=== PATIENT | female | born 1955 | race Caucasian/White ===

== ENCOUNTER 2016-11-02 10:01 | Emergency (ER) | payer MEDICARE, OTHER ==
[2016-11-02] MEDS ORDERED: SODIUM CHLORIDE 0.9% 1,000 ML IV ONE ×2 (12:29→12:43)
[2016-11-02] MEDS ORDERED: ACETAMINOPHEN 1,000 MG/100 ML 100 ML IV STA (12:29)
[2016-11-02] MEDS ORDERED: ACETAMINOPHEN 1,000 MG/100 ML 100 ML IV ONE (12:43)
== END 2016-11-02 14:24 | disposition home or self-care (01) ==
DX: R10.31 Right lower quadrant pain (principal); R11.2 Nausea with vomiting, unspecified; I10 Essential (primary) hypertension
CPT/HCPCS: 36415; 74176; 80053; 81001; 83690; 85025; 87086; 96374; 99283; 99284; J0131

== ENCOUNTER 2017-01-13 09:08 | Outpatient (CLI) | payer MEDICARE, OTHER | END 2017-01-13 09:09 | disposition home or self-care (01) | LOC: RT 09:08 | DX: J45.909 Unspecified asthma, uncomplicated (principal) | CPT/HCPCS: 94010 ==

== ENCOUNTER 2019-03-11 10:26 | Emergency (ER) | payer MEDICARE, OTHER ==
[2019-03-11 11:33] LABS: BASOPHILS % (AUTO) 0.2 %; EOSINOPHILS # (AUTO) 0.1 10^3/uL (0.0-0.7); EOSINOPHILS % (AUTO) 0.9 %; HGB - HEMOGLOBIN 9.9 g/dL (12.0-16.0); LYMPHOCYTES # (AUTO) 1.9 10^3/uL (1.5-3.5); LYMPHOCYTES % (AUTO) 19.6 %; MEAN CORPUSCULAR HEMOGLOBIN 28.1 pg (27.0-31.0); MEAN CORPUSCULAR HGB CONC 29.5 g/dL (32.0-36.0); MEAN CORPUSCULAR VOLUME 95.5 fL (81.0-99.0); MEAN PLATELET VOLUME 10.2 fL (7.9-10.8); MONOCYTES # (AUTO) 0.6 10^3/uL (0.0-1.0); MONOCYTES % (AUTO) 6.4 %; NEUTROPHILS # (AUTO) 6.9 10^3/uL (1.5-6.6); NEUTROPHILS % (AUTO) 72.5 %; PLT - PLATELET COUNT 196 10^3/uL (130-450); RED BLOOD COUNT 3.52 10^6/uL (4.20-5.40); WHITE BLOOD COUNT 9.5 x10^3/uL (4.8-10.8)
[2019-03-11 11:34] LABS: BILIRUBIN,URINE NEGATIVE (NEGATIVE); GLUCOSE, URINE (UA) NEGATIVE (NEGATIVE); KETONES,URINE (UA) NEGATIVE (NEGATIVE); LEUKOCYTE ESTERASE, URINE MODERATE (NEGATIVE); NITRITE,URINE NEGATIVE (NEGATIVE); OCCULT BLOOD,URINE NEGATIVE (NEGATIVE); PH,URINE 6.5 PH (5.0-7.5); PROTEIN,URINE 30 mg/dL (NEGATIVE); UROBILINOGEN,URINE 0.2 (NORMAL) E.U./dL (NORMAL)
[2019-03-11 11:37] LABS: CLARITY,URINE HAZY (CLEAR)
[2019-03-11 11:41] LABS: BACTERIA,URINE Moderate /HPF (None Seen); RBC,URINE 0-5 /HPF (0-5); SQUAMOUS EPITHELIAL CELL,UR MOD Squamous (<= Few)
[2019-03-11] MEDS ORDERED: LORazepam 1 MG TABLET PO STA (11:47)
[2019-03-11] MEDS ORDERED: HALOPERIDOL 5 MG/ML VIAL IM STA (11:47)
[2019-03-11 11:58] LABS: ALBUMIN 3.6 g/dL (3.2-5.5); ALBUMIN/GLOBULIN RATIO 0.9 (1.0-2.2); CALCIUM 9.4 mg/dL (8.5-10.3); TOTAL PROTEIN 7.4 g/dL (6.7-8.2)
--- NOTE | 2019-03-11 12:56 | ED Physician Documentation ---
PD HPI NVD - Stated complaint Stated Complaint: NAUSEA/VOMITING - Chief complaint Chief Complaint: Abd Pain - History obtained from History obtained from: Patient, Friend - History of Present Illness Timing - onset: How many days ago (several) Timing - duration: Days Timing - details: Gradual onset, Waxing and waning Associated symptoms: Loss of appetite. No: Fever, Abdominal pain, Chest pain, Hematemesis, Melena, Hematochezia, Dizzy, Near syncope / syncope, Hematuria, Vaginal bleeding, Vaginal dc, Testicular pain Contributing factors: No: Sick contact Improved by: Other (nothing) Worsened by: Eating, Other Similar symptoms before: Has not had sx before Recently seen: Not recently seen - Treatment prior to arrival Treatment prior to arrival: none - Additonal information Additional information: Pt reports feeling very anxious since her told her this weekend that he is leaving her. Since then she has had intermittent nausea and vomiting. Reports mild abdominal pain. Denies fever. Denies urinary symptoms. Denies cp, sob. Mostly reports anxiety. Review of Systems Ten Systems: 10 systems reviewed and negative Constitutional: denies: Fever, Chills Cardiac: denies: Chest pain / pressure Respiratory: denies: Dyspnea GI: reports: Abdominal Pain, Nausea, Vomiting. denies: Abdominal Swelling, Constipation, Diarrhea, Hematemesis, Bloody / black stool Skin: reports: Reviewed and negative Neurologic: reports: Reviewed and negative Psychiatric: reports: Depressed, Anxiety, Insomnia. denies: Suicidal PD PAST MEDICAL HISTORY - Past Medical History Past Medical History: Yes Cardiovascular: Hypertension Psych: Depression - Present Medications Home Medications: Ambulatory Orders Medication Instructions Recorded Confirmed Albuterol Sulfate [Ventolin Hfa] 8 gm IH 05/08/16 05/08/16 Atenolol [Tenormin] 25 mg PO DAILY 05/08/16 05/08/16 Bupropion HCl [Bupropion Xl] 300 mg PO 05/08/16 Esomeprazole Magnesium [Nexium 20 mg PO 05/08/16 24Hr] Fexofenadine HCl [Marie Allergy] 180 mg PO 05/08/16 Levothyroxine [Synthroid] 50 mcg PO QDAC 05/08/16 05/08/16 Lisinopril [Zestril] 40 mg PO 05/08/16 Meloxicam [Mobic] 15 mg PO 05/08/16 Thyroid [[place] Thyroid] 60 mg PO DAILY 05/08/16 05/08/16 Venlafaxine ER [Effexor ER] 150 mg PO DAILY 05/08/16 05/08/16 hydroCHLOROthiazide [Hydrodiuril] 12.5 mg PO DAILY 05/08/16 05/08/16 metFORMIN [Glucophage] 500 mg PO ONCE 05/08/16 05/08/16 Cyclobenzaprine [Flexeril] 10 mg PO TID PRN #10 tablet 05/13/16 Oxycodone HCl/Acetaminophen 1 - 2 tab PO Q4H PRN #10 tablet 05/13/16 [Percocet 5-325 mg Tablet] Cephalexin [Keflex] 500 mg PO Q6H #28 capsule 11/02/16 Ondansetron Odt [Zofran] 4 mg TL Q6H PRN #10 tablet 11/02/16 Ondansetron Odt [Zofran] 4 mg TL Q6H PRN #10 tablet 03/11/19 - Allergies Allergies/Adverse Reactions: Allergies Allergy/AdvReac Type Severity Reaction Status Date / Time ciprofloxacin [From Cipro] Allergy Unknown Verified 03/11/19 10:35 ciprofloxacin HCl * Allergy Unknown Verified 03/11/19 10:35 [From Cipro] erythromycin base Allergy Nausea Verified 03/11/19 10:35 theophylline Allergy Unknown Verified 03/11/19 10:35 - Social History Does the pt smoke?: No Smoking Status: Never smoker Does the pt drink ETOH?: No Does the pt have substance abuse?: No PD ED PE NORMAL - Vitals Vital signs reviewed: Yes - General General: Alert and oriented X 3, No acute distress, Well developed/nourished - HEENT HEENT: Atraumatic - Neck Neck: Supple, no meningeal sign - Cardiac Cardiac: RRR, No murmur, No gallop, No rub - Respiratory Respiratory: No respiratory distress, Clear bilaterally - Abdomen Abdomen: Soft, Non tender, Non distended - Female Female : Deferred - Rectal Rectal: Deferred - Back Back: No CVA TTP - Derm Derm: Normal color, Warm and dry, No rash - Extremities Extremities: No deformity - Neuro Neuro: Alert and oriented X 3 Eye Opening: Spontaneous Motor: Obeys Commands Verbal: Oriented GCS Score: 15 - Psych Psych: Normal mood, Normal affect Results - Vitals Vitals: Oxygen O2 Source Room air - Labs Labs: Laboratory Tests 03/11/19 03/11/19 03/11/19 11:05 11:21 11:21 WBC 9.5 RBC 3.52 L Hgb 9.9 L Hct 33.6 L MCV 95.5 MCH 28.1 MCHC 29.5 L RDW 14.0 Plt Count 196 MPV 10.2 Neut # (Auto) 6.9 H Lymph # (Auto) 1.9 [place] # (Auto) 0.6 Eos # (Auto) 0.1 Baso # (Auto) 0.0 Absolute Nucleated RBC 0.00 Nucleated RBC % 0.0 Sodium 140 Potassium 4.7 Chloride 104 Carbon Dioxide 24 Anion Gap 12.0 BUN 15 Creatinine 1.0 Estimated GFR (MDRD) 56 L Glucose 122 H Calcium 9.4 Total Bilirubin 1.0 AST 24 ALT 21 Alkaline Phosphatase 104 Troponin I Total Protein 7.4 Albumin 3.6 Globulin 3.8 Albumin/Globulin Ratio 0.9 L Lipase 26 Urine Color YELLOW Urine Clarity HAZY Urine pH 6.5 Ur Specific [place] 1.015 Urine Protein 30 H Urine Glucose (UA) NEGATIVE Urine Ketones NEGATIVE Urine Occult Blood NEGATIVE Urine Nitrite NEGATIVE Urine Bilirubin NEGATIVE Urine Urobilinogen 0.2 (NORMAL) Ur Leukocyte Esterase MODERATE H Urine RBC 0-5 Urine WBC 11-25 H Ur Squamous Epith Cells MOD Squamous H Urine Bacteria Moderate H Ur Microscopic Review INDICATED Urine Culture Comments NOT INDICATED 03/11/19 11:21 WBC RBC Hgb Hct MCV MCH MCHC RDW Plt Count MPV Neut # (Auto) Lymph # (Auto) [place] # (Auto) Eos # (Auto) Baso # (Auto) Absolute Nucleated RBC Nucleated RBC % Sodium Potassium Chloride Carbon Dioxide Anion Gap BUN Creatinine Estimated GFR (MDRD) Glucose Calcium Total Bilirubin AST ALT Alkaline Phosphatase Troponin I < 0.04 Total Protein Albumin Globulin Albumin/Globulin Ratio Lipase Urine Color Urine Clarity Urine pH Ur Specific [place] Urine Protein Urine Glucose (UA) Urine Ketones Urine Occult Blood Urine Nitrite Urine Bilirubin Urine Urobilinogen Ur Leukocyte Esterase Urine RBC Urine WBC Ur Squamous Epith Cells Urine Bacteria Ur Microscopic Review Urine Culture Comments contaminated urine sample, no symptoms of UTI, mild anemia. no evidence of significant dehydration. PD MEDICAL DECISION MAKING - ED course Complexity details: reviewed results, re-evaluated patient, considered differential, d/w patient ED course: ddx - anxiety, grieving, hepatitis, pancreaitis, UTI, gastritis, cyclic vomiting 63 y/o F with reports of anxiety since left her just this week.. Feeling intermittently nauseous and vomited a few times. No GI bleeding reported. No diarrhea. Pt denies cp, sob. She has a normal examination, normal labs. UA contaminated sample and no symptoms of UTI. Pt given antiemetics and ativan with relief of symptoms. She is drinking oral fluids. Will f/u with PCP as outpt. Given return precautions if worsening or new concerning symptoms. Departure - Departure Disposition: Home, Self Care Clinical Impression: Nausea Condition: Stable Record reviewed to determine appropriate education?: Yes Instructions: Nausea Vomit Control Follow-Up: MELYSSA CARL [Primary Care Provider] - Within 1 week Prescriptions: Ondansetron Odt [Zofran] 4 mg TL Q6H PRN #10 tablet PRN Reason: Nausea / Vomiting Comments: Your ekg, labs and examination in the Emergency department today were normal. You should follow up with your doctor to further discuss your symptoms. You can take zofran as needed for nausea in the meantime. Discharge Date/Time: 03/11/19 13:25
[2019-03-11 13:26] VITALS: BP 156/74
== END 2019-03-11 13:25 | disposition home or self-care (01) ==
LOC: ED 10:26
DX: R11.2 Nausea with vomiting, unspecified (principal); F41.9 Anxiety disorder, unspecified; I10 Essential (primary) hypertension
CPT/HCPCS: 36415; 80053; 81001; 83690; 84484; 85025; 93005; 96372; 99284; J8499; 81003; 87086

== ENCOUNTER 2020-08-02 12:16 | Outpatient (CLI) | payer MEDICARE, OTHER ==
--- NOTE | 2020-08-02 16:11 | XRAY Report ---
PROCEDURE: Ankle 3 View RT INDICATIONS: NONDISPLACED FX OF LATERAL MALLEOLUS OF R FIBULA TECHNIQUE: views of the ankle were acquired. COMPARISON: None FINDINGS: Bones: No dislocations. Ankle mortise is normally aligned. No suspicious bony lesions. There is a nondisplaced diagonal fracture involving the distal metadiaphyseal junction of the right fibula. An kle mortise joint widening is not present. Soft tissues: No tibiotalar joint effusion. Achilles tendon appears normal. IMPRESSION: Distal fibular diagonal fracture, high right ankle fracture laterally. No abnormal widen ing of the ankle mortise joint. The fracture plane is essentially in anatomic alignment. Reviewed by: Juan Pablo Bella MD on 08/02/2020 4:09 PM PST Approved by: Juan Pablo Bella MD on 08/02/2020 4:09 PM PST Station ID: [id number]
== END 2020-08-02 23:59 | disposition home or self-care (01) ==
LOC: DI.N 12:16
PROVIDERS: ATTEND Orthopaedic Surgery
DX: S82.831A Other fracture of upper and lower end of right fibula, initial encounter for closed fracture (principal)

== ENCOUNTER 2021-01-09 21:11 | Outpatient (CLI) | payer MEDICARE, OTHER | END 2021-01-09 21:12 | disposition critical access hospital (66) | LOC: EMS 21:11 | DX: R45.89 Other symptoms and signs involving emotional state (principal) | CPT/HCPCS: A0425; A0429 ==

== ENCOUNTER 2021-01-09 21:31 | Emergency (ER) | payer MEDICARE, OTHER ==
[2021-01-09 22:01] LABS: BASOPHILS % (AUTO) 0.3 %; EOSINOPHILS # (AUTO) 0.1 10^3/uL (0.0-0.7); EOSINOPHILS % (AUTO) 1.2 %; HCT - HEMATOCRIT 41.9 % (37.0-47.0); HGB - HEMOGLOBIN 14.1 g/dL (12.0-16.0); LYMPHOCYTES # (AUTO) 2.6 10^3/uL (1.5-3.5); LYMPHOCYTES % (AUTO) 24.4 %; MEAN CORPUSCULAR HEMOGLOBIN 29.9 pg (27.0-31.0); MEAN CORPUSCULAR HGB CONC 33.7 g/dL (32.0-36.0); MEAN CORPUSCULAR VOLUME 88.8 fL (81.0-99.0); MEAN PLATELET VOLUME 9.9 fL (7.9-10.8); MONOCYTES # (AUTO) 0.7 10^3/uL (0.0-1.0); MONOCYTES % (AUTO) 6.9 %; NEUTROPHILS % (AUTO) 66.7 %; PLT - PLATELET COUNT 263 10^3/uL (130-450); RED BLOOD COUNT 4.72 10^6/uL (4.20-5.40); RED CELL DISTRIBUTION WIDTH 13.6 % (12.0-15.0); WHITE BLOOD COUNT 10.5 x10^3/uL (4.8-10.8)
[2021-01-09 22:18] LABS: ALBUMIN 3.4 g/dL (3.2-5.5); ALBUMIN/GLOBULIN RATIO 1.1 (1.0-2.2); ALKALINE PHOSPHATASE 99 IU/L (42-121); ALT ALANINE AMINOTRANSFERASE 19 IU/L (10-60); AST ASPARTATE AMINOTRANSFERASE 21 IU/L (10-42); BILIRUBIN,TOTAL 0.8 mg/dL (0.2-1.0); BUN - BLOOD UREA NITROGEN 14 mg/dL (6-20); CALCIUM 8.8 mg/dL (8.5-10.3); CARBON DIOXIDE - CO2 26 mmol/L (21-32); CHLORIDE 102 mmol/L (101-111); CREATININE 0.9 mg/dL (0.4-1.0); ETOH - ETHANOL < 5.0 mg/dL; GFR - MDRD 63 (>89); GLUCOSE 102 mg/dL (70-100); LIPASE 20 U/L (22-51); POTASSIUM 3.6 mmol/L (3.5-5.0); SODIUM 139 mmol/L (135-145); TOTAL PROTEIN 6.4 g/dL (6.7-8.2)
[2021-01-09] MEDS ORDERED: oxyCODONE 5 MG TABLET PO STA (22:19)
[2021-01-09 23:03] LABS: B. PARAPERTUSSIS- RESP PCR PAN NOT DETECTED; B. PERTUSSIS- RESP PCR PANEL NOT DETECTED; C. PNEUMONIAE- RESP PCR PANEL NOT DETECTED; CORONAVIRUS 229E-RESP PCR NOT DETECTED; CORONAVIRUS HKU1-RESP PCR NOT DETECTED; CORONAVIRUS NL63-RESP PCR NOT DETECTED; CORONAVIRUS OC43-RESP PCR NOT DETECTED; HUMAN METAPNEUMOVIRUS NOT DETECTED; INFLUENZA A- RESP PCR PANEL NOT DETECTED; INFLUENZA B - RESP PCR PANEL NOT DETECTED; M. PNEUMONIAE- RESP PCR PANEL NOT DETECTED; PARAINFLUENZA VIRUS 1 NOT DETECTED; PARAINFLUENZA VIRUS 2 NOT DETECTED; PARAINFLUENZA VIRUS 3 NOT DETECTED; PARAINFLUENZA VIRUS 4 NOT DETECTED; RHINOVIRUS/ENTEROVIRUS NOT DETECTED; RSV- RESP PCR PANEL NOT DETECTED; SARS-CoV-2 -RESP PCR PANEL NOT DETECTED
[2021-01-09] MEDS ORDERED: LORazepam 2 MG/ML VIAL IM STA (23:10)
[2021-01-10] MEDS ORDERED: oxyCODONE 5 MG TABLET PO STA (00:21)
--- NOTE | 2021-01-10 04:17 | ED Physician Documentation ---
History of Present Illness - Stated complaint Stated Complaint: SI - Chief complaint Chief Complaint: MHE - History obtained from History obtained from: Patient, EMS - Additonal information Additional information: Patient is brought to the emergency department by EMS for chief complaint of "I do not want to be here anymore". The patient states that she has been to her for a total of 45 years, though she was in 20 years ago. She states that he "came back" and that she has spent the last 20 years mostly laying in bed because she is so depressed. The patient states that the main source of her unhappiness is her unhappy marriage. She states that she has seen multiple counselors, therapists, and psychiatrist and has been on various medications. When asked if she is ever attempted to commit suicide, patient states "only in my prayers". With further questioning, the patient denies ever having done anything to purposely harm herself, including today. She states valeriy t she just prays that God will take her life because she is unhappy. She denies domestic abuse. She states she has not been taking her medications, though she will not say exactly why. Patient has a history of hypertension, depression and anxiety. She denies being on chronic pain medication, though she states at this time that "her whole body hurts". She denies trauma. No other complaints at this time. Review of Systems Ten Systems: 10 systems reviewed and negative Constitutional: reports: Reviewed and negative Eyes: reports: Reviewed and negative Ears: reports: Reviewed and negative Nose: reports: Reviewed and negative Throat: reports: Reviewed and negative Cardiac: reports: Reviewed and negative Respiratory: reports: Reviewed and negative GI: reports: Reviewed and negative : reports: Reviewed and negative Skin: reports: Reviewed and negative Musculoskeletal: reports: Reviewed and negative Neurologic: reports: Reviewed and negative Psychiatric: reports: Depressed, Suicidal Endocrine: reports: Reviewed and negative Immunocompromised: reports: Reviewed and negative PD PAST MEDICAL HISTORY - Past Medical History Past Medical History: Yes Cardiovascular: Hypertension Psych: Depression - Past Surgical History Past Surgical History: Yes Cardiovascular: Other - Present Medications Home Medications: Ambulatory Orders Medication Instructions Recorded Confirmed Albuterol Sulfate [Ventolin Hfa] 8 gm IH 05/08/16 05/08/16 Bupropion HCl [Bupropion Xl] 300 mg PO 05/08/16 Esomeprazole Magnesium [Nexium 20 mg PO 05/08/16 24Hr] Fexofenadine HCl [Marie Allergy] 180 mg PO 05/08/16 Levothyroxine [Synthroid] 50 mcg PO QDAC 05/08/16 05/08/16 Lisinopril [Zestril] 40 mg PO 05/08/16 Thyroid [[place] Thyroid] 60 mg PO DAILY 05/08/16 05/08/16 Cyclobenzaprine [Flexeril] 10 mg PO TID PRN #10 tablet 05/13/16 Atorvastatin [Lipitor] 10 mg PO DAILY 01/09/21 01/09/21 Fluoxetine HCl [Prozac] 20 mg PO 01/09/21 Fluoxetine HCl [Prozac] 40 mg PO DAILY 01/09/21 01/09/21 Liothyronine [Cytomel] 5 mcg PO QDAC 01/09/21 01/09/21 Metoprolol Tartrate [Lopressor] 100 mg PO DAILY 01/09/21 01/09/21 Omeprazole Magnesium 20 mg PO DAILY 01/09/21 01/09/21 - Allergies Allergies/Adverse Reactions: Allergies Allergy/AdvReac Type Severity Reaction Status Date / Time ciprofloxacin [From Cipro] Allergy Unknown Verified 03/11/19 10:35 ciprofloxacin HCl * Allergy Unknown Verified 03/11/19 10:35 [From Cipro] erythromycin base Allergy Nausea Verified 03/11/19 10:35 theophylline Allergy Unknown Verified 03/11/19 10:35 - Social History Does the pt smoke?: No Smoking Status: Never smoker Does the pt drink ETOH?: No Does the pt have substance abuse?: No - Immunizations Immunizations are current?: No - POLST Patient has POLST: No PD ED PE NORMAL - Vitals Vital signs reviewed: Yes - General General: Alert and oriented X 3, Other (Patient is sobbing loudly.) - HEENT HEENT: Atraumatic, PERRL, EOMI, Moist mucous membranes - Neck Neck: Supple, no meningeal sign - Cardiac Cardiac: RRR, No murmur, Strong equal pulses - Respiratory Respiratory: No respiratory distress, Clear bilaterally - Abdomen Abdomen: Soft, Non tender, Non distended - Derm Derm: Normal color, Warm and dry, No rash - Extremities Extremities: No deformity, No edema, No calf tenderness / cord - Neuro Neuro: Alert and oriented X 3, 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 Emotionally labile, cycling between crying and anger, with occasional periods of quiet, yet hostile demeanor.) Results - Vitals Vitals: Vital Signs - 24 hr 01/09/21 01/09/21 21:35 21:58 Temperature 37.3 C 37.3 C Heart Rate 90 90 Respiratory 27 H 27 H Rate Blood Pressure 191/106 H 191/106 H O2 Saturation 98 98 Oxygen O2 Source Room air - Labs Labs: Laboratory Tests 01/09/21 01/09/21 01/09/21 21:57 21:57 21:57 WBC 10.5 RBC 4.72 Hgb 14.1 Hct 41.9 MCV 88.8 MCH 29.9 MCHC 33.7 RDW 13.6 Plt Count 263 MPV 9.9 Neut # (Auto) 7.0 H Lymph # (Auto) 2.6 [place] # (Auto) 0.7 Eos # (Auto) 0.1 Baso # (Auto) 0.0 Absolute Nucleated RBC 0.00 Nucleated RBC % 0.0 Sodium 139 Potassium 3.6 Chloride 102 Carbon Dioxide 26 Anion Gap 11.0 BUN 14 Creatinine 0.9 Estimated GFR (MDRD) 63 L Glucose 102 H Calcium 8.8 Total Bilirubin 0.8 AST 21 ALT 19 Alkaline Phosphatase 99 Total Protein 6.4 L Albumin 3.4 Globulin 3.0 Albumin/Globulin Ratio 1.1 Lipase 20 L TSH 7.63 H Nasal Adenovirus (PCR) Nasal B. parapertussis DNA (PCR) Nasal Coronavir 229E PCR Nasal Coronavir HKU1 PCR Nasal Coronavir NL63 PCR Nasal Coronavir OC43 PCR Nasal Enterovir/Rhinovir PCR Nasal Influenza B PCR Nasal Influenza A PCR Nasal Parainfluen 1 PCR Nasal Parainfluen 2 PCR Nasal Parainfluen 3 PCR Nasal Parainfluen 4 PCR Nasal RSV (PCR) Nasal B.pertussis DNA PCR Nasal C.pneumoniae (PCR) Christian Human Metapneumo PCR Nasal M.pneumoniae (PCR) Nasal SARS-CoV-2 (PCR) Ethyl Alcohol < 5.0 01/09/21 22:02 WBC RBC Hgb Hct MCV MCH MCHC RDW Plt Count MPV Neut # (Auto) Lymph # (Auto) [place] # (Auto) Eos # (Auto) Baso # (Auto) Absolute Nucleated RBC Nucleated RBC % Sodium Potassium Chloride Carbon Dioxide Anion Gap BUN Creatinine Estimated GFR (MDRD) Glucose Calcium Total Bilirubin AST ALT Alkaline Phosphatase Total Protein Albumin Globulin Albumin/Globulin Ratio Lipase TSH Nasal Adenovirus (PCR) NOT DETECTED Nasal B. parapertussis DNA (PCR) NOT DETECTED Nasal Coronavir 229E PCR NOT DETECTED Nasal Coronavir HKU1 PCR NOT DETECTED Nasal Coronavir NL63 PCR NOT DETECTED Nasal Coronavir OC43 PCR NOT DETECTED Nasal Enterovir/Rhinovir PCR NOT DETECTED Nasal Influenza B PCR NOT DETECTED Nasal Influenza A PCR NOT DETECTED Nasal Parainfluen 1 PCR NOT DETECTED Nasal Parainfluen 2 PCR NOT DETECTED Nasal Parainfluen 3 PCR NOT DETECTED Nasal Parainfluen 4 PCR NOT DETECTED Nasal RSV (PCR) NOT DETECTED Nasal B.pertussis DNA PCR NOT DETECTED Nasal C.pneumoniae (PCR) NOT DETECTED Christian Human Metapneumo PCR NOT DETECTED Nasal M.pneumoniae (PCR) NOT DETECTED Nasal SARS-CoV-2 (PCR) NOT DETECTED Ethyl Alcohol PD MEDICAL DECISION MAKING - ED course Complexity details: reviewed old records, reviewed results, re-evaluated patient, considered differential, d/w patient, d/w family ED course: I discussed with the patient that at this point in time, we do not have a manager social in house as it is nighttime, but we will get the clearance labs for mental health evaluation in the morning. The patient initially seemed agreeable, and asked for something for her "whole body pain". She stated that she normally takes Percocet when she has pain. She was given a single dose of Percocet, which she did calm down for a brief period, but was soon loudly sobbing. The patient began to become agitated and antagonistic, attempting to get out of the bed and loudly demanding to have access to all of her pills, so she could "take them all". The patient also stated that she was "going to leave" so I did come speak with her again. I informed the patient that she was not in a position to choose to leave at this point, given her statements of suicidal ideation. The patient became hostile and agitated, but I did explain to her that she could either remain here on a voluntary basis, or we would have to use restraints to hold her on an involuntary basis, as I did not feel she was safe to go home at this point. The patient ultimately opted to get back in the bed. She did remain calm for some time but then began to become very anxious and agitated again, and was given a dose of Ativan to help with this. The patient did calm, though she then began stating again that she would like to leave. The patient's had called a couple of times to check on her, and we did request that he come to the emergency department so we could have a group discussion about whether he and the patient felt that she could go home and be safe. When the patient's came, the patient was extremely hostile toward him and stated that she refused to go home with her . The did note that she has had these periods of emotional lability and hostility previously. I explained to the patient that she must stay here in the emergency department for mental health evaluation. The patient ultimately agreed to stay on a voluntary basis and did become calm enough to fall asleep in the room and has had no further outbursts at the time of this dictation. She will be signed out to oncoming emergency physician, pending SW eval and final disposition.
[2021-01-10 10:06] LABS: MUDS CUTOFF CONCENTRATIONS CUTOFF CONC BELOW:
[2021-01-10 10:21] LABS: AMPHETAMINE SCREEN,URINE NEGATIVE (NEGATIVE); BARBITURATE SCREEN,UR NEGATIVE (NEGATIVE); BENZODIAZEPINES SCREEN, URINE POSITIVE (NEGATIVE); COCAINE SCREEN URINE NEGATIVE (NEGATIVE); METHADONE SCREEN, URINE NEGATIVE (NEGATIVE); METHAMPHETAMINES SCREEN, URINE NEGATIVE (NEGATIVE); OPIATE SCREEN, URINE NEGATIVE (NEGATIVE); OXYCODONE SCREEN, URINE POSITIVE (NEGATIVE); PROPOXYPHENE SCREEN, URINE NEGATIVE (NEGATIVE); THC CANNABINOID SCREEN, URINE NEGATIVE (NEGATIVE); TRICYCLIC ANTIDEPRESSANT,URINE NEGATIVE (NEGATIVE)
--- NOTE | 2021-01-10 17:47 | ED Physician Documentation ---
ED Addendum - Addendum Addendum: The patient had been seen overnight for suicidal ideation and depression. She was seen by social work in the morning and the patient was not clear about munir for safety. AMANDEEP was consulted and Katya who is on-call on talked with the patient. She deemed the patient not to be needing commitment involuntarily. The patient did agree to voluntary treatment however. Attempts are now being made to find inpatient bed for the patient. 01/10/21 17:46
[2021-01-10] MEDS ORDERED: ACETAMINOPHEN 325 MG TABLET PO STA (18:04)
--- NOTE | 2021-01-10 22:03 | ED Physician Documentation ---
ED Addendum - Addendum Addendum: 01/10/21 21:[address] Received sign out from Dr[address] Myles at end of his shift pending bed availability at appropriate facility. A bed became available at [facility] and they are ready to receive patient at approximately midnight. At approximately 9:45 PM, patient insists on leaving. ED RN and I both explained to patient that arrangements for [facility] inpatient have been finalized and she is to be transferred in about 2 hours. She says she understands this but insists on leaving. She says she has a dental appointment tomorrow at 12:30 which she is intent on getting to, and she says she will go to [facility] herself after the appointment. I explained that she can do so but that the bed will not be held for her if she leaves the ED at this time. She is able to contract for safety with me, says she feels safe going home and agrees to call 911 if she is having thoughts of self-harm
[2021-01-10 22:24] VITALS: BP 130/72
== END 2021-01-10 22:23 | disposition home or self-care (01) ==
LOC: EDUNIT# → ED 21:31
DX: F32.9 Major depressive disorder, single episode, unspecified (principal); R45.851 Suicidal ideations; F43.0 Acute stress reaction; F41.9 Anxiety disorder, unspecified; R52 Pain, unspecified; I10 Essential (primary) hypertension; Z20.822 Contact with and (suspected) exposure to COVID-19
CPT/HCPCS: 36415; 80053; 80306; 83690; 84443; 85025; 87631; 93005; 96374; 99283; A9270; G0480; J2060; 0202U; 80320